=== PATIENT | female | born 2000 | race Caucasian/White ===

== ENCOUNTER 2023-12-15 16:20 | Emergency (ER) | payer OTHER ==
[~2023-12-15] VITALS: Ht 172.7 cm; Wt 62.6 kg
--- OUTSIDE RECORDS SUMMARY | ~2023-12-15 | XMS | Continuity of Care Document ---
Demographics + + + | Address | [address] | | | [place] [address] | + + + | Preferred Language | Unknown | + + + | Marital Status | Unknown | + + + | Sikh Affiliation | Unknown | + + + | Race | White | + + + | Ethnic Group | Not or | + + + Author + + + | Author | [facility] | + + + | Organization | [facility] | + + + | Address | [address] | | | [place] [address] | + + + | Phone | | + + + Care Team Providers + + + + | Care Service Desk Director Name | Role | Phone | + + + + Unavailable | Unavailable | + + + + Allergies No information. Encounters No information. Functional Status No information. Immunizations No information. Medications No information. Problems + + + + | date | description | facility | + + + + | 2023-09-24 21:41:18 | Unspecified fall, initial | [facility] | | | encounter | | + + + + Procedures No information. Results/Labs No information. Social History +--------+ + + | date | description | facility | +--------+ + + Vital Signs No information."
[~2023-12-15 16:20] MED LIST: 24HOUR ALLERGY10 MG PO; ZITHROMAX250 MG PO
--- OUTSIDE RECORDS SUMMARY | 2023-12-15 16:26 | XMS ---
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 - Patient eloped before treatment completed. - Patient with suicidal and/or homicidal ideations eloped. Details: Patient LWBS. CRITERIA MET - Group Notification CARE PROVIDERS -[facility] Dentist: Campaign Specialist Current [facility] PHONE: [phone] Clarissa Torres Nurse Practitioner: Family [facility]- PHONE: [phone] Charly has no Care Guidelines for this patient. EVinay. VISIT COUNT (12 MO.) 2 [facility] 1 [facility] 1 [facility] Daria Briones (Radha Garcia) 1 [facility] TOTAL 5 NOTE: Visits indicate total known visits. ED/UCC VISIT TRACKING (12 MO.) 12/15/2023 16:20 [facility] [place] TYPE: Emergency COMPLAINT: - TROUBLE BREATHING 09/24/2023 19:09 [facility] TYPE: Emergency COMPLAINT: - Tailbone pain DIAGNOSES: - Unspecified fall, initial encounter - Fall - Tailbone pain [facility] DIAGNOSES: - Sprain of other ligament of right ankle, subsequent encounter - Foot Pain - Right Foot Injury [facility]20[facility]2023 15:23 [facility] [place] [facility] [place] COMPLAINT: - RT ANKLE PAIN 05/10/2023 11:[address] [facility] [place] TYPE: Emergency DIAGNOSES: - Sprain of other ligament of right ankle, initial encounter INPATIENT VISIT TRACKING (12 MO.) No inpatient visits to display in this time frame [id number]
[2023-12-15] MEDS ORDERED: ESCITALOPRAM OX10 MG PO (16:36)
[2023-12-15] MEDS ORDERED: ELURYNG VAGINA1 EACH VG (16:36)
[2023-12-15 16:53] LABS: BASOPHILS 0.5 % (0-2); EOSINOPHILS 0.4 % (0-6); HEMATOCRIT 36.9 % (35.0-50.0); HEMOGLOBIN 12.6 g/dL (12.0-18.0); LYMPHOCYTES 25.6 % (24-44); MCH 29.5 (27-36); MCHC 34.2 g/dl (30-36); MCV 86.1 fl (81-99); MONOCYTES 5.8 % (0-12); NEUTROPHILS 67.7 % (39-80); PLATELET COUNT 221 K/uL (140-440); RBC 4.28 M/ul (4.3-5.7); RDW 13.4 (10.5-15.0)
[2023-12-15 17:11] LABS: ALBUMIN 3.7 g/dL (3.4-5.0); ALBUMIN/GLOBULIN RATIO 1.28 (1.1-2.4); ALKALINE PHOSPHATASE 43 U/L (46-116); ALT (SGPT) 15 U/L (14-59); ANION GAP 12.4 (7-21); AST (SGOT) 8 U/L (15-37); BILIRUBIN, TOTAL 0.3 ng/dL (0.2-1.0); BUN/CREATININE RATIO 12.34 (6.0-28.6); CALCIUM 8.6 mg/dL (8.5-10.1); CARBON DIOXIDE 28 mmol/L (21-32); CHLORIDE 102 mmol/L (98-107); CREATININE, SERUM 0.81 mg/dL (0.55-1.02); GLOMERULAR FILTRATION RATE,EST 107 mL/min (>60); MAGNESIUM 1.9 mg/dL (1.8-2.4); POTASSIUM 3.4 mmol/L (3.5-5.1); PROTEIN, TOTAL 6.6 g/dL (6.4-8.2); UREA NITROGEN 10 mg/dL (7-18)
[2023-12-15 19:08] VITALS: BP 131/79
--- NOTE | 2023-12-16 21:24 | EKG ---
[facility] [address] [place], [place] [address] Signed Normal sinus rhythm Normal ECG No previous ECGs available Confirmed by Timothy Perkins MD ([id number]) on 12/16/2023 9:23:50 PM Electronically Signed By: TIMOTHY PERKINS MD 12/16/232123 PATIENT NAME: BONNIE WREN Electrocardiogram DATE OF : [birth year] PHYSICIAN: TIMOTHY PERKINS MD REPORT #: [id number] REPORT IS CONFIDENTIAL AND NOT TO BE RELEASED WITHOUT AUTHORIZATION
== END 2023-12-15 19:08 | disposition home or self-care (01) ==
LOC: ED 16:20
PROVIDERS: Emergency Medicine
DX: M94.0 Chondrocostal junction syndrome [Tietze] (principal); Z88.0 Allergy status to penicillin; Z79.899 Other long term (current) drug therapy
CPT/HCPCS: 36415; 71045; 80053; 83735; 84484; 84703; 85025; 93005; 93010; 99285-25